=== PATIENT | female | born 1945 | race Caucasian/White ===

== ENCOUNTER 2018-06-19 13:12 | Emergency (ER) | payer MEDICARE ==
[2018-06-19 13:52] VITALS: BP 108/60
--- NOTE | 2018-06-19 14:11 | UC ---
Skin Complaint HPI - HPI Summary HPI Summary: 73-year-old female presents with complaints of painful erythematous rash to her left abdomen and flank. States she was seen by her primary care provider one week ago she was developing some pain and tingling in the same area. Primary care provider obtained an x-ray and CT scan which were both normal. Patient states the pain has been increasingly getting worse over the past week and today she noted a rash in the same area. Describes the pain as an intense burning. Denies fever, chills, nausea, vomiting, diarrhea, dysuria, frequency, urgency, or hematuria. - History of Current Complaint Chief Complaint: UCRash Time Seen by Provider: 06/19/18 13:59 Stated Complaint: SKIN CONCERN Hx Obtained From: Patient Pain Intensity: 5 - Allergy/Home Medications Allergies/Adverse Reactions: Allergies Allergy/AdvReac Type Severity Reaction Status Date / Time aspirin Allergy Hives Verified 06/19/18 13:50 cefuroxime [From Ceftin] Allergy Shortness Verified 06/19/18 13:50 of Breath Penicillins Allergy Hives Verified 06/19/18 13:50 Sulfa (Sulfonamide Allergy Unknown Verified 06/19/18 13:50 Antibiotics) Reaction Details Home Medications: Home Medications Acetaminophen [Tylenol Extra Strength] 500 mg PO Q6HR PRN 06/19/18 [History Confirmed 06/19/18] PMH/Surg Hx/FS Hx/Imm Hx Respiratory History: COPD - Surgical History Surgical History: Yes Surgery Procedure, Year, and Place: LUMBAR SPINE SURGERY 2000. TONSILLECTOMY. RIGHT OOPHARECTOMY. colon resection 2013 - Family History Known Family History: Positive: None - Social History Occupation: Retired Lives: With Family Alcohol Use: None Substance Use Type: None Smoking Status (MU): Former Smoker Type: Cigarettes Amount Used/How Often: 1 PPD Length of Time of Smoking/Using Tobacco: 45 Years Have You Smoked in the Last Year: No When Did the Patient Quit Smoking/Using Tobacco: ~2008 - Immunization History Most Recent Influenza Vaccination: December 2014 Most Recent Pneumonia Vaccination: December 2014 Review of Systems All Other Systems Reviewed And Are Negative: Yes Constitutional: Negative: Fever, Chills Skin: Positive: Rash - See HPI Respiratory: Positive: Negative Cardiovascular: Positive: Negative Gastrointestinal: Negative: Vomiting, Diarrhea, Nausea Genitourinary: Negative: Dysuria, Hematuria, Frequency, Urgency Musculoskeletal: Positive: Negative Neurological: Positive: Negative Is Patient Immunocompromised?: No Physical Exam - Summary Physical Exam Summary: GENERAL APPEARANCE: Well developed, well nourished, alert and cooperative, and appears to be in no acute distress. CARDIAC: Normal S1 and S2. No S3, S4 or murmurs. Rhythm is regular. There is no peripheral edema, cyanosis or pallor. Extremities are warm and well perfused. Capillary refill is less than 2 seconds. Peripheral pulses intact. LUNGS: Clear to auscultation without rales, rhonchi, wheezing or diminished breath sounds. ABDOMEN: Positive bowel sounds. Soft, nondistended, nontender. No guarding or rebound. No masses or hepatosplenomegally. No CVA tenderness. MUSKULOSKELETAL: ROM intact to all extremities. No joint erythema or tenderness. Normal muscular development. Normal gait. SKIN: Erythematous, vesicular, dermatomal, painful rash to her left abdomen and flank. Triage Information Reviewed: Yes Vital Signs: Initial Vital Signs Temp 97.8 F 06/19/18 13:47 Pulse 64 06/19/18 13:47 Resp 17 06/19/18 13:47 BP 108/60 06/19/18 13:47 Pulse Ox 98 06/19/18 13:47 Vital Signs Reviewed: Yes Course/Dx - Course Course Of Treatment: 73-year-old female presents with complaints of painful erythematous rash to her left abdomen and flank. States she was seen by her primary care provider one week ago she was developing some pain and tingling in the same area. Primary care provider obtained an x-ray and CT scan which were both normal. Patient states the pain has been increasingly getting worse over the past week and today she noted a rash in the same area. Describes the pain as an intense burning. Denies fever, chills, nausea, vomiting, diarrhea, dysuria, frequency, urgency, or hematuria. Afebrile. Vital signs stable. Exam was remarkable for a erythematous, vesicular, dermatomal, painful rash to her left abdomen and flank. Discussed with patient that the rash at her history of fairly consistent with herpes zoster therefore we will start her on valacyclovir 1000 mg 3 times a day 7 days. Recommending [id number] analgesics for pain at this time. She is to follow-up with her primary care provider in 3-5 days. Anticipatory guidance and warning symptoms were reviewed with the patient. Verbalizes understanding and agrees with plan of care. - Differential Diagnoses - Skin Complaint Differential Diagnoses: Cellulitis, Contact Dermatitis, Local Allergic Reaction , Varicella Zoster - Diagnoses Provider Diagnosis: Herpes zoster Discharge - Sign-Out/Discharge Documenting (check all that apply): Patient Departure All imaging exams completed and their final reports reviewed: No Studies - Discharge Plan Condition: Stable Disposition: HOME Prescriptions: Valacyclovir HCl [Valacyclovir] 1,000 mg PO TID 7 Days #21 tablet Patient Education Materials: Shingles (ED) Referrals: Rosalva Lewis MD [Primary Care Provider] - 3 Days Additional Instructions: Your history and exam are consistent with shingles. Start valacyclovir 1000 mg three times a day for the next 7 days. Take acetaminophen (Tylenol) according to directions as needed for pain. Follow up with your primary care provided in 3-5 days for recheck of symptoms. Seek immediate medical attention if you develop fever greater than 100.5 F, have severe pain, or any worsening of symptoms. - Billing Disposition and Condition Condition: STABLE Disposition: Home - Attestation Statements Provider Attestation: I was available for consult. This patient was seen by the ANTHONY. The patient was not presented to, seen by, or examined by me. -Ana
== END 2018-06-19 14:26 | disposition home or self-care (01) ==
LOC: UCCORT 13:12
DX: B02.9 Zoster without complications (principal); J44.9 Chronic obstructive pulmonary disease, unspecified; Z88.6 Allergy status to analgesic agent; Z88.1 Allergy status to other antibiotic agents; Z88.0 Allergy status to penicillin; Z88.2 Allergy status to sulfonamides; Z87.891 Personal history of nicotine dependence
CPT/HCPCS: 99202; G0463